=== PATIENT | female | born 1955 | race Two or more races ===

== ENCOUNTER 2017-09-16 07:36 | Day surgery (SDC) | payer OTHER | END 2017-09-16 11:15 | disposition home or self-care (01) | LOC: AMB-ENDOS 07:36 | DX: K57.30 Diverticulosis of large intestine without perforation or abscess without bleeding (principal); K63.89 Other specified diseases of intestine; K64.2 Third degree hemorrhoids ==

== ENCOUNTER 2020-07-09 06:10 | Day surgery (SDC) | payer OTHER ==
[~2020-07-09 06:10] MED LIST: COZAAR100 MG PO; CRESTOR5 MG PO; FORTAMET500 MG PO; HYDRODIURIL12.5 MG PO; NORVASC5 MG PO; TOPROL XL50 M1 PO
== END 2020-07-09 17:29 | disposition home or self-care (01) ==
LOC: CIR.AMB 06:10
PROVIDERS: ATTEND Colon & Rectal Surgery
DX: K64.8 Other hemorrhoids (principal); K64.4 Residual hemorrhoidal skin tags; Z20.822 Contact with and (suspected) exposure to COVID-19